=== PATIENT | male | born 1990 | race Caucasian/White ===

== ENCOUNTER 2020-12-05 18:07 | Inpatient (IN) | payer BC ==
[~2020-12-05] VITALS: Ht 172.7 cm; Wt 77.1 kg
[2020-12-05 18:15] VITALS: BP 129/91
[2020-12-05 18:38] LABS: ABSOLUTE BASOPHILS 0.1 thou/uL (0.0-0.2); ABSOLUTE EOSINOPHILS 0.1 thou/uL (0.0-0.7); ABSOLUTE LYMPHOCYTES 1.6 thou/uL (0.8-5.3); ABSOLUTE MONOCYTES 0.8 thou/uL (0.0-1.2); ABSOLUTE NEUTROPHILS 8.6 thou/uL (1.6-8.1); BASOPHILS 0.6 %; EOSINOPHILS 0.5 %; HEMATOCRIT 48.9 % (42.0-52.0); HEMOGLOBIN 16.4 gm/dL (14.0-18.0); LYMPHOCYTES 14.3 %; MCH 28.9 pg (26.0-34.0); MCHC 33.6 g/dL (28.0-37.0); MCV 86.1 fL (80.0-100.0); MONOCYTES 6.9 %; MPV 7.4 fl. (7.2-11.1); NUCLEATED RBCS 0 /100WBC; PLATELET COUNT* 251 thou/uL (150-400); POLYS 77.7 %; RBC 5.68 mil/uL (4.50-6.00); RDW-CV 12.8 % (10.5-14.5)
[2020-12-05 18:43] LABS: URINE BILIRUBIN NEGATIVE (Negative); URINE BLOOD NEGATIVE (Negative); URINE CLARITY CLEAR; URINE COLOR YELLOW; URINE GLUCOSE-RANDOM NEGATIVE (Negative); URINE KETONES 2+ (Negative); URINE LEUKOCYTES-REFLEX NEGATIVE (Negative); URINE NITRITE-REFLEX NEGATIVE (Negative); URINE PROTEIN NEGATIVE (Negative); URINE SPECIFIC GRAVITY 1.015 (1.005-1.030); URINE UROBILINOGEN 0.2 E.U./dl (0.2-1.0)
[2020-12-05 18:51] LABS: POTASSIUM 3.4 mmol/L (3.5-5.1)
[2020-12-05 18:55] LABS: TOTAL PROTEIN 7.6 g/dL (6.4-8.2)
--- NOTE | 2020-12-05 21:10 | NUR ---
PATIENT DOES NOT WANT TO BE ADMITTED TO THE HOSPITAL. DR. PARIS INFORMED.
--- NOTE | 2020-12-05 22:10 | NUR ---
SPOKE WITH DR. PRIETO ABOUT PATIENT NOT WANTING BE ADMITTED INPATIENT. AMA SIGNED. WILL RECEIVE DISCHARGE INSTRUCTIONS PER DR. PARIS.
[2020-12-05] MEDS ORDERED: CIPROFLOXACIN500 M1 PO (22:24)
[2020-12-05] MEDS ORDERED: PREDNISONE 20 M20 M1 PO (22:24)
[2020-12-05] MEDS ORDERED: HYDROCODON-ACE1 EAC7 PO (22:24)
[2020-12-05] MEDS ORDERED: FLAGYL500 M1 PO (22:24)
[2020-12-05 22:38] VITALS: BP 102/50
== END 2020-12-05 22:38 | disposition left against medical advice (07) | DRG 386 ==
LOC: M.ERS 18:07 → M.TBA-ER 19:27
PROVIDERS: Physician Assistant; ADMIT Internal Medicine; ATTEND Internal Medicine
DX: K51.00 Ulcerative (chronic) pancolitis without complications (principal); K62.5 Hemorrhage of anus and rectum; Z53.21 Procedure and treatment not carried out due to patient leaving prior to being seen by health care provider; Z20.822 Contact with and (suspected) exposure to COVID-19